=== PATIENT | male | born 1955 | race Two or more races ===

== ENCOUNTER 2018-06-13 19:32 | Inpatient (IN) | payer OTHER ==
[~2018-06-13] VITALS: Ht 162.6 cm; Wt 70.7 kg
[~2018-06-13 19:32] MED LIST: HYDR-3498 PO
[2018-06-13] MEDS ORDERED: SODIUM CHLORIDE 0.9% 1L BAG IV* STA (20:27)
[2018-06-13] MEDS ORDERED: ALBUTEROL 0.5% (NEB) 2.5 MG/0.5 ML AMP INH STA (20:27)
[2018-06-13] MEDS ORDERED: CEFTRIAXONE 1 GM/50 ML (PMX) 50 ML IVPB ONE (20:30)
[2018-06-13] MEDS ORDERED: IBUPROFEN 600 MG TAB PO ONE (20:30)
--- NOTE | 2018-06-13 21:14 | ERD ---
ER Documentation Chief Complaint Chief Complaint C/O HIGH BP AT HOME 140'S, ARAUJO, FEVER AND NOT FEELING WELL X1 MONTH HPI 63-year-old man brought in by daughter for cough, fever, congestion, URI symptoms times 2 days. He was recently told by PMD he has a viral upper respiratory tract infection, he has had no recent antibiotics, no chest pain, no shortness of breath, no vomiting or diarrhea. He has a history of stroke with left-sided deficit and usually walks around the house without difficulty although daughter states for the last 2 days he has been feeling weaker than usual mostly sitting. Patient has had no LOC, no rash, no headache or blurry vision. ROS All systems reviewed and are negative except as per history of present illness. Medications Home Meds Active Scripts Hydrocodone Bit-Acetaminophen* (Beauty*) 5-325 Mg Tab, 1 TAB PO Q6 PRN for PAIN, #10 TAB Prov:CHRIS WILLARD 11/11/15 Reported Medications Metoprolol Tartrate* (Lopressor*) 25 Mg Tab, 12.5 MG PO BID, #60 TAB 06/13/18 Clopidogrel Bisulfate (Clopidogrel) 75 Mg Tablet, 75 MG PO DAILY, #30 TAB 06/13/18 Benazepril Hcl* (Benazepril Hcl*) 5 Mg Tablet, 5 MG PO DAILY, #30 TAB 06/13/18 Atorvastatin* (Atorvastatin*) 80 Mg Tablet, 80 MG PO QHS, #30 TAB 06/13/18 Allergies Allergies: Coded Allergies: No Known Allergy (Unverified , 06/13/18) PMhx/Soc Hypertension, stroke, left-sided deficits, expressive dysphasia History of Surgery: Yes (angioplasty, STENT PLACEMENT, KNEE SX) Hx Neurological Disorder: Yes (STROKE) Hx Cardiac Disorders: Yes (HTN) Hx Alcohol Use: No Hx Substance Use: No Hx Tobacco Use: No Smoking Status: Unknown if ever smoked FmHx Family History: No diabetes Physical Exam Vitals Vital Signs Date Temp Pulse Resp B/P (MAP) Pulse Ox O2 O2 Flow FiO2 Time Delivery Rate 06/13/18 97 23 112/61 98 Mask 8.0 21:45 (78) 06/13/18 Nasal 2 21:25 Cannula 06/13/18 85 20 91 21 20:51 06/13/18 101.7 96 21 127/67 92 19:41 (87) Physical Exam GENERAL: Well-developed, well-nourished, appears dyspneic, febrile HEENT: Moist mucous membranes, pink conjunctiva, no cervical spine tenderness or step-off deformities, no goiter, no jaundice or icterus, extraocular movements intact without pain. No submandibular induration, and no pharyngeal erythema NEURO: A&O x3, patient is able to answer simple questions and follow simple commands, he has expressive dysphasia due to his stroke and left hemiparesis, no facial asymmetry, pupils equal round reactive to light CARDIAC: Regular rate and rhythm, no murmurs rubs or gallops LUNGS: Poor breath sounds bilaterally, scattered wheezes, crackles at the left base ABDOMEN: Soft nontender, no guarding, no rigidity, no rebound, no psoas sign no obturator sign. SKIN: Warm and dry to touch, no abrasions, contusions, or hematomas, no lacerati ons, no ecchymosis, no target lesions, and without ulcers EXTREMITIES: No clubbing cyanosis or edema, calves are bilaterally symmetrical, no Homans sign, no popliteal cord sign. Distal pulses equal and bilateral PSYCH: Normal affect without agitation or irritability Result Diagram: 06/13/18203506/13/182035 Results 24 hrs Laboratory Tests Test 06/13/18 20:33 06/13/18 20:36 06/13/18 21:01 06/13/18 22:43 POC Venous 1.2 mmol/L 1.3 mmol/L Lactate White Blood Count 8.8 10^3/ul Red Blood Count 4.32 10^6/ul Hemoglobin 12.8 g/dl Hematocrit 37.3 % Mean Corpuscular 86.3 fl Volume Mean Corpuscular 29.6 pg Hemoglobin Mean Corpuscular 34.3 g/dl Hemoglobin Concen t Red Cell 13.0 % Distribution Width Platelet Count 371 10^3/UL Mean Platelet 9.2 fl Volume Immature 0.600 % Granulocytes % Neutrophils % 79.4 % Lymphocytes % 9.7 % Monocytes % 9.5 % Eosinophils % 0.5 % Basophils % 0.3 % Nucleated Red 0.0 /100WBC Blood Cells % Immature 0.050 10^3/ul Granulocytes # Neutrophils # 7.0 10^3/ul Lymphocytes # 0.9 10^3/ul Monocytes # 0.8 10^3/ul Eosinophils # 0.0 10^3/ul Basophils # 0.0 10^3/ul Nucleated Red 0.0 10^3/ul Blood Cells # Prothrombin Time 13.5 Sec Prothrombin Time 1.1 Ratio INR International 1.02 Normalized Ratio Activated 36.0 Sec Partial Thrombopl ast Time Sodium Level 137 mmol/L Potassium Level 4.1 mmol/L Chloride Level 100 mmol/L Carbon Dioxide 23 mmol/L Level Anion Gap 14 Blood Urea 20 mg/dl Nitrogen Creatinine 1.41 mg/dl Est Glomerular 51 mL/min Filtrat Rate mL/min Glucose Level 139 mg/dl Calcium Level 9.4 mg/dl Total Bilirubin 0.5 mg/dl Direct Bilirubin 0.00 mg/dl Indirect 0.5 mg/dl Bilirubin Aspartate Amino 28 IU/L Transf (AST/SGOT) Alanine 11 IU/L Aminotransferase (ALT/SGPT) Alkaline 84 IU/L Phosphatase Troponin I 0.014 ng/ml Total Protein 8.1 g/dl Albumin 4.0 g/dl Globulin 4.10 g/dl Albumin/Globulin 0.97 Ratio Lipase 95 U/L Urine Color YELLOW Urine Clarity SLIGHTLY CLOUDY Urine pH 5.0 Urine Specific 1.026 [place] Urine Ketones NEGATIVE mg/dL Urine Nitrite NEGATIVE mg/dL Urine Bilirubin NEGATIVE mg/dL Urine 1+ mg/dL Urobilinogen Urine Leukocyte NEGATIVE Sandra/ul Esterase Urine Microscopic 5 /HPF RBC Urine Microscopic 3 /HPF WBC Urine Mucus MANY /HPF Urine Hemoglobin 2+ mg/dL Urine Glucose NEGATIVE mg/dL Urine Total NEGATIVE mg/dl Protein Current Medications Medications Dose Sig/Cristofer Start Time Status Last (Trade) Ordered Route PRN Stop Time Admin Dose Reason Admin Sodium 2,100 ml BOLUS OVER 2 06/13/18 DC 06/13/18 Chloride HOURS STAT 20:27 20:58 (NS) IV* 06/13/18 20:31 Ibuprofen 600 mg ONCE ONCE 06/13/18 DC 06/13/18 (Motrin) PO 20:30 20:57 06/13/18 20:31 Ceftriaxone 50 ml @ ONCE ONCE 06/13/18 DC 06/13/18 Sodium 100 mls/hr IVPB 20:30 20:57 06/13/18 20:59 Albuterol 10 mg ONCE STAT 06/13/18 DC 06/13/18 (Proventil INH 20:27 20:51 0.5% (Neb)) 06/13/18 20:31 Azithromycin 250 ml @ ONCE ONCE 06/13/18 DC 06/13/18 250 mls/hr IVPB 21:30 21:37 06/13/18 22:29 Procedures/MDM IV line was established patient was placed on clinical research monitor rhythm strip revealed a sinus rhythm at about 80 bpm with upright P and T waves. Patient was febrile. Blood and urine cultures have been ordered results are pending I will follow-up. I do not suspect sepsis. EKG performed, read by me revealed a normal sinus rhythm 84 bpm, normal axis, narrow QRS complex, no concerning ST elevations or depressions noted 1 view chest x-ray performed, read by me revealed a left lower lobe infiltrate, no pneumothorax, no air under the diaphragm I administered 2 L normal saline IV, ibuprofen 600 mg p.o. x1 for fever, albuterol 10 mg via nebulizer for cough and congestion, as well as ceftriaxone 1 g IV. I also administered azithromycin 500 mg IV x1 CBC was unremarkable, electrolytes revealed dehydration, liver function tests normal, troponin negative, urinalysis negative for infection, influenza swabs were negative. Lactic acid level was low and I do not suspect sepsis. Patient admitted to [facility] Diagnosis: Primary Impression: Pneumonia Pneumonia type: due to unspecified organism Laterality: left Lung location: lower lobe of lung Qualified Codes: J18.1 - Lobar pneumonia, unspecified organism Condition: GABRIEL Sosa MD Jun 13, 2018 21:14
[2018-06-13] MEDS ORDERED: AZITHROMYCIN 500MG/NS (PMX) 250 ML IVPB ONE (21:30)
[2018-06-13] MEDS ORDERED: ATOR-2 PO (21:57)
[2018-06-13] MEDS ORDERED: METO-448 PO (21:58)
[2018-06-13] MEDS ORDERED: BENA5TAB33 PO (21:58)
[2018-06-13] MEDS ORDERED: CLOP75TA27 PO (21:58)
--- NOTE | 2018-06-13 23:07 | HP ---
Date/Time of Note Date/Time of Note DATE: 06/13/18 TIME: 23:07 Assessment/Plan VTE Prophylaxis Pharmacological prophylaxis: heparin Lines/Catheters IV Catheter Type (from Nrsg): Peripheral IV Assessment/Plan Assessment/Plan 1. Sepsis, as evidenced by fever and tachycardia: Secondary to pneumonia -IV antibiotic, IV fluid -Follow-up culture results including respiratory culture 2. KAREN versus CKD -will hydrate for now -will decide about renal ultrasound and nephrology consult in a.m. 3. Hypertension: Continue home meds. Adjust as needed 4. History of CVA: Continue antiplatelet and statin 5. Dyslipidemia: Continue statin Result Diagram: 06/13/18203506/13/182035 Results 24hrs Laboratory Tests Test 06/13/18 20:33 06/13/18 20:36 06/13/18 21:01 06/13/18 22:43 POC Venous 1.2 1.3 Lactate White Blood Count 8.8 # Red Blood Count 4.32 L Hemoglobin 12.8 L Hematocrit 37.3 L Mean Corpuscular 86.3 Volume Mean Corpuscular 29.6 Hemoglobin Mean Corpuscular 34.3 Hemoglobin Concen t Red Cell 13.0 Distribution Width Platelet Count 371 Mean Platelet 9.2 # Volume Immature 0.600 H Granulocytes % Neutrophils % 79.4 H Lymphocytes % 9.7 L Monocytes % 9.5 Eosinophils % 0.5 Basophils % 0.3 Nucleated Red 0.0 Blood Cells % Immature 0.050 H Granulocytes # Neutrophils # 7.0 Lymphocytes # 0.9 Monocytes # 0.8 Eosinophils # 0.0 Basophils # 0.0 Nucleated Red 0.0 Blood Cells # Prothrombin Time 13.5 Prothrombin Time 1.1 Ratio INR International 1.02 Normalized Ratio Activated 36.0 H Partial Thrombopl ast Time Sodium Level 137 Potassium Level 4.1 Chloride Level 100 Carbon Dioxide 23 Level Anion Gap 14 H Blood Urea 20 Nitrogen Creatinine 1.41 H Est Glomerular 51 L Filtrat Rate mL/min Glucose Level 139 Calcium Level 9.4 Total Bilirubin 0.5 Direct Bilirubin 0.00 Indirect 0.5 Bilirubin Aspartate Amino 28 Transf (AST/SGOT) Alanine 11 L Aminotransferase (ALT/SGPT) Alkaline 84 Phosphatase Troponin I 0.014 Total Protein 8.1 Albumin 4.0 Globulin 4.10 H Albumin/Globulin 0.97 Ratio Lipase 95 Urine Color YELLOW Urine Clarity SLIGHTLY CLOUDY A Urine pH 5.0 Urine Specific 1.026 [place] Urine Ketones NEGATIVE Urine Nitrite NEGATIVE Urine Bilirubin NEGATIVE Urine 1+ H Urobilinogen Urine Leukocyte NEGATIVE Esterase Urine Microscopic 5 RBC Urine Microscopic 3 WBC Urine Mucus MANY A Urine Hemoglobin 2+ H Urine Glucose NEGATIVE Urine Total NEGATIVE Protein HPI/ROS Admit Date/Time Admit Date/Time Hx of Present Illness This is a 63-year-old male with a history of hypertension, dyslipidemia, CVA, CAD with stent who presented to ER complaining of cough, fever and shortness of breath. Symptoms been going on for the past few days. He is accompanied by his daughter who provided most of the history. She said he was diagnosed with CVA 3 years ago and since then he has been having occasional difficulty with fluid intake. He has also been dependent on his family. Denied chest pain. When presented to ER, he was febrile with temperature of 101.7, heart rate in the 90s. Chest x-ray shows left-sided consolidation. PMH/Family/Social Past Medical History Medical History: other (see hpi) Medications Current Medications Sodium Chloride 1,000 ml @ 100 mls/hr Q10H IV ; Start 06/13/18 at 23:02; Stop 06/14/20 at 23:00; Status UNV IV Flush (NS 3 ml) 3 ml PER PROTOCOL IV ; Start 06/13/18 at 23:30; Status UNV Ondansetron HCl (Zofran Inj) 4 mg Q6H PRN IV NAUSEA/VOMITING; Start 06/13/18 at 23:30; Status UNV Acetaminophen (Tylenol Tab) 650 mg Q6H PRN PO .PAIN 1-3 OR TEMP; Start 06/13/18 at 23:30; Status UNV Albuterol/ Ipratropium (Duoneb) 3 ml Q2H RESP THERAPY PRN HHN SHORTNESS OF BREATH; Start 06/13/18 at 23:30; Status UNV Atorvastatin Calcium (Lipitor) 80 mg QHS PO ; Start 06/14/18 at 21:00; Status UNV Clopidogrel Bisulfate (plaVIX) 75 mg DAILY PO ; Start 06/14/18 at 09:00; Status UNV Acetaminophen/ Hydrocodone Bitart ([place] (5/325)) 1 tab Q6 PRN PO PAIN; Start 06/13/18 at 23:30; Status UNV Levofloxacin/ Dextrose 100 ml @ 100 mls/hr DAILY IVPB ; Start 06/14/18 at 09:00; Status UNV Coded Allergies: No Known Allergy (Unverified , 06/13/18) Past Surgical History Past Surgical Hx: other (see hpi) Family History Significant Family History: no pertinent family hx Social History Alcohol Use: other Smoking Status: Unknown if ever smoked Drug Use: other Exam/Review of Systems Vital Signs Vitals Vital Signs Date Temp Pulse Resp B/P (MAP) Pulse Ox O2 O2 Flow FiO2 Time Delivery Rate 06/13/18 89 20 91/56 (68) 94 Nasal 4.0 22:57 Cannula 06/13/18 21 20:51 06/13/18 101.7 19:41 Exam Exam No pallor carotid bruits JVD adenopathy Regular no murmur gallop no tachypnea Bowel sounds present DAREN MCGREGOR MD Jun 13, 2018 23:07
[2018-06-13] MEDS: SOD CHLORIDE 0.9% 1,000 ML IV SCH (23:26)
[2018-06-13] MEDS ORDERED: ACETAMINOPHEN 325 MG TAB PO PRN (23:30)
[2018-06-13] MEDS ORDERED: ALBUTEROL/IPRATROPIUM (NEB) 3 ML AMP HHN PRN (23:30)
[2018-06-13] MEDS ORDERED: HYDROCODONE/APAP (5/325) TAB PO PRN (23:30)
[2018-06-13] MEDS ORDERED: ONDANSETRON 4 MG INJ IV PRN (23:30)
[2018-06-13] MEDS ORDERED: NACL 0.9% 3 ML SYG IV SCH (23:30)
[2018-06-14] VITALS: BP 96/51; PULSE 77; RESP 18
[2018-06-14 00:17] VITALS: Ht 162.6 cm; Wt 70.7 kg
[2018-06-14 02:39] VITALS: BP 101/56; PULSE 66; RESP 17
[2018-06-14] MEDS: SOD CHLORIDE 0.9% 1,000 ML IV SCH ×3 (06:30→18:10)
[2018-06-14 07:44] VITALS: BP 108/55; PULSE 68; RESP 16
[2018-06-14] MEDS: LEVOFLOXACIN 500MG/D5W (PMX) 100 ML IVPB SCH (08:38)
--- NOTE | 2018-06-14 09:23 | CONS ---
DATE OF ADMISSION: 06/13/2018 DATE OF CONSULTATION: 06/14/2018 TYPE OF CONSULTATION: Nephrology. REASON FOR CONSULTATION: Acute kidney injury. HISTORY OF PRESENT ILLNESS: This is a 63-year-old male with a past medical history of CVA, history o f dyslipidemia, history of hypertension who presents to [facility] with a fever, co ugh. The patient states his symptoms started approximately a few days ago when he was treated for an upper respiratory infection. However, the patient continued to have ongoing fever. As a result, he came to [facility]. Upon arrival, patient had a chest x-ray which showed evidence of left-sided consolidation. The patient was febrile with a temperature of 101.7. In the Emergency Room, the patient was placed on IV antibiotics, IV fluids and admitted to med/surg for evaluation. In terms of patient's renal history, the patient's family stated that he was noted to have renal insu fficiency in the past, but after adjustment of medications his kidney function improved. They are no t aware of any diagnosis of chronic kidney disease. There have been no reports of any rashes, hemopt ysis, hematemesis, or hematochezia. PAST MEDICAL HISTORY: History of hypertension, dyslipidemia, CVA, coronary artery disease. PAST SURGICAL HISTORY: Status post cardiac catheterization. FAMILY HISTORY: No family history of kidney disease. SOCIAL HISTORY: Does not drink, smoke or do drugs. MEDICATIONS: The patient's medications have been reviewed. ALLERGIES: NO KNOWN DRUG ALLERGIES. REVIEW OF SYSTEMS: A 14-point review of systems conducted. Pertinent positives stated in HPI, other calhoun negative. PHYSICAL EXAMINATION: VITAL SIGNS: Blood pressure is 108/55, respirations 16, pulse 68, temperature 98.0. HEENT: Head is normocephalic. NECK: Supple. HEART: Regular rate. LUNGS: Show diminished breath sounds at the base. ABDOMEN: Soft, nontender to palpation. No rebound or guarding. EXTREMITIES: Negative for clubbing, cyanosis, no edema. DERMATOLOGIC: No rashes. MUSCULOSKELETAL: No joint effusion. NEUROLOGIC: No change in exam. LABORATORY DATA: Shows sodium 137, potassium 4.1, BUN 20, creatinine 1.41. White count 8.2, hemoglo bin 10.5, platelet count 304. Urinalysis shows no pyuria, no hematuria. Positive hemoglobin. IMAGING STUDIES: Have been reviewed. ASSESSMENT AND PLAN: This is a 63-year-old male who presents with: 1. Nonoliguric acute kidney injury with unknown baseline creatinine. Etiology of acute kidney injur y may be secondary to hemodynamics, questionable sepsis. The patient's urinalysis was reviewed, no a ctive sediment. Plan at this point is to follow up renal panel after fluid challenge. Would conside r renal ultrasound to evaluate renal parenchyma. Otherwise, continue antibiotics to treat underlying sepsis, pneumonia. Continue supportive care, renally dose all meds, avoid nephrotoxins. 2. Anemia. Continue to monitor hemoglobin and hematocrit levels. 3. Mineral bone disorder, monitor calcium and phosphorus levels. 4. Sepsis secondary to pneumonia. Continue current antibiotic regimen. Follow up cultures. 5. Hypertension. Continue current blood pressure regimen. 6. History of cerebrovascular accident. Continue current medical regimen. 7. History of coronary artery disease. Continue current treatment plan. 8. Dyslipidemia. Continue statin therapy. Thank you, Dr. Mcgregor for this interesting consult. It will be a [facility]. Dictated By: BLUE RAMSEY DO NR/NTS Conf#: [id number] DID#: [id number] CC: DAREN MCGREGOR MD;*EndCC*
[2018-06-14] MEDS: CLOPIDOGREL 75 MG TAB PO SCH (10:43)
--- NOTE | 2018-06-14 13:22 | PN ---
Date/Time of Note Date/Time of Note DATE: 06/14/18 TIME: 13:20 Assessment/Plan VTE Prophylaxis Risk score (from Ns)>0 risk: 3 [place] [facility] [place] [facility] SCD contraindicated: low risk/ambulating Pharmacological prophylaxis: LMWH Lines/Catheters IV [facility]ter Type (from [facility]): Peripheral IV Assessment/Plan Hospital Course Assessment plan 1. Pneumonia aspiration versus community-acquired, stable continue antibiotics 2. Chronic dysphagia? Stable, consult ST 3. Abnormal blood cultures. Contaminated specimen versus sepsis? Stable we do cultures 4. Chronic left hemiparesis/stroke stable continue supportive care. Needs advanced care planning reevaluated 5. Chronic dyslipidemia 6. Chronic hypertension 7. Chronic coronary disease/PCI status 8. Chronic kidney disease? Appreciate nephrology assistance Subjective: Feels better less cough. Family states that they monitor him while he is at home. He did have his flu shot 2 months ago. No travel or ill contacts. Objective: Vital signs stable Physical exam No pallor carotid bruits JVD adenopathy Regular no murmur gallop Clear no tachypnea Bowel sounds present nontender nondistended no rigidity rebound guarding No edema Result Diagram: 06/14/189 06/14/18438 Results 24hrs Laboratory Tests Test 06/13/18 20:33 06/13/18 20:36 06/13/18 21:01 06/13/18 22:43 POC Venous 1.2 1.3 Lactate White Blood Count 8.8 # Red Blood Count 4.32 L Hemoglobin 12.8 L Hematocrit 37.3 L Mean Corpuscular 86.3 Volume Mean Corpuscular 29.6 Hemoglobin Mean Corpuscular 34.3 Hemoglobin Concen t Red Cell 13.0 Distribution Width Platelet Count 371 Mean Platelet 9.2 # Volume Immature 0.600 H Granulocytes % Neutrophils % 79.4 H Lymphocytes % 9.7 L Monocytes % 9.5 Eosinophils % 0.5 Basophils % 0.3 Nucleated Red 0.0 Blood Cells % Immature 0.050 H Granulocytes # Neutrophils # 7.0 Lymphocytes # 0.9 Monocytes # 0.8 Eosinophils # 0.0 Basophils # 0.0 Nucleated Red 0.0 Blood Cells # Prothrombin Time 13.5 Prothrombin Time 1.1 Ratio INR International 1.02 Normalized Ratio Activated 36.0 H Partial Thrombopl ast Time Sodium Level 137 Potassium Level 4.1 Chloride Level 100 Carbon Dioxide 23 Level Anion Gap 14 H Blood Urea 20 Nitrogen Creatinine 1.41 H Est Glomerular 51 L Filtrat Rate mL/min Glucose Level 139 Calcium Level 9.4 Total Bilirubin 0.5 Direct Bilirubin 0.00 Indirect 0.5 Bilirubin Aspartate Amino 28 Transf (AST/SGOT) Alanine 11 L Aminotransferase (ALT/SGPT) Alkaline 84 Phosphatase Troponin I 0.014 Total Protein 8.1 Albumin 4.0 Globulin 4.10 H Albumin/Globulin 0.97 Ratio Lipase 95 Urine Color YELLOW Urine Clarity SLIGHTLY CLOUDY A Urine pH 5.0 Urine Specific 1.026 [place] Urine Ketones NEGATIVE Urine Nitrite NEGATIVE Urine Bilirubin NEGATIVE Urine 1+ H Urobilinogen Urine Leukocyte NEGATIVE Esterase Urine Microscopic 5 RBC Urine Microscopic 3 WBC Urine Mucus MANY A Urine Hemoglobin 2+ H Urine Glucose NEGATIVE Urine Total NEGATIVE Protein Test 06/14/18 00:14 06/14/18 04:39 Lactic Acid Level 1.3 White Blood Count 8.2 Red Blood Count 3.53 L Hemoglobin 10.5 L Hematocrit 31.2 L Mean Corpuscular 88.4 Volume Mean Corpuscular 29.7 Hemoglobin Mean Corpuscular 33.7 Hemoglobin Concen t Red Cell 13.4 Distribution Width Platelet Count 305 Mean Platelet 9.6 Volume Immature 0.500 H Granulocytes % Neutrophils % 68.8 Lymphocytes % 18.1 Monocytes % 11.4 H Eosinophils % 0.7 Basophils % 0.5 Nucleated Red 0.0 Blood Cells % Immature 0.040 H Granulocytes # Neutrophils # 5.6 Lymphocytes # 1.5 Monocytes # 0.9 Eosinophils # 0.1 Basophils # 0.0 Nucleated Red 0.0 Blood Cells # Sodium Level 140 Potassium Level 3.8 Chloride Level 110 # Carbon Dioxide 24 Level Anion Gap 6 # Blood Urea 17 Nitrogen Creatinine 1.15 Est Glomerular > 60 Filtrat Rate mL/min Glucose Level 103 Calcium Level 8.6 Phosphorus Level 4.0 Magnesium Level 2.2 Total Bilirubin 0.3 Direct Bilirubin 0.00 Indirect 0.3 Bilirubin Aspartate Amino 22 Transf (AST/SGOT) Alanine 12 L Aminotransferase (ALT/SGPT) Alkaline 67 Phosphatase Total Protein 6.2 # Albumin 3.0 #L Globulin 3.20 Albumin/Globulin 0.93 Ratio Triglycerides 47 Level Cholesterol Level 70 L LDL Cholesterol, 37 Calculated HDL Cholesterol 24 L Cholesterol/HDL 2.9 Ratio Exam/Review of Systems Exam Vitals Vital Signs Date Temp Pulse Resp B/P (MAP) Pulse Ox O2 O2 Flow FiO2 Time Delivery Rate 06/14/18 Nasal 08:51 Cannula 06/14/18 98.0 68 16 108/55 95 07:44 (72) 06/13/18 4.0 22:57 06/13/18 21 20:51 Intake and Output 06/13/18 06/13/18 06/14/18 1515:00 23:00 07:00 IntakeIntake Total 1120 ml BalanceBalance 1120 ml Results Results 24hrs Laboratory Tests Test 06/13/18 20:33 06/13/18 20:36 06/13/18 21:01 06/13/18 22:43 POC Venous 1.2 1.3 Lactate White Blood Count 8.8 # Red Blood Count 4.32 L Hemoglobin 12.8 L Hematocrit 37.3 L Mean Corpuscular 86.3 Volume Mean Corpuscular 29.6 Hemoglobin Mean Corpuscular 34.3 Hemoglobin Concen t Red Cell 13.0 Distribution Width Platelet Count 371 Mean Platelet 9.2 # Volume Immature 0.600 H Granulocytes % Neutrophils % 79.4 H Lymphocytes % 9.7 L Monocytes % 9.5 Eosinophils % 0.5 Basophils % 0.3 Nucleated Red 0.0 Blood Cells % Immature 0.050 H Granulocytes # Neutrophils # 7.0 Lymphocytes # 0.9 Monocytes # 0.8 Eosinophils # 0.0 Basophils # 0.0 Nucleated Red 0.0 Blood Cells # Prothrombin Time 13.5 Prothrombin Time 1.1 Ratio INR International 1.02 Normalized Ratio Activated 36.0 H Partial Thrombopl ast Time Sodium Level 137 Potassium Level 4.1 Chloride Level 100 Carbon Dioxide 23 Level Anion Gap 14 H Blood Urea 20 Nitrogen Creatinine 1.41 H Est Glomerular 51 L Filtrat Rate mL/min Glucose Level 139 Calcium Level 9.4 Total Bilirubin 0.5 Direct Bilirubin 0.00 Indirect 0.5 Bilirubin Aspartate Amino 28 Transf (AST/SGOT) Alanine 11 L Aminotransferase (ALT/SGPT) Alkaline 84 Phosphatase Troponin I 0.014 Total Protein 8.1 Albumin 4.0 Globulin 4.10 H Albumin/Globulin 0.97 Ratio Lipase 95 Urine Color YELLOW Urine Clarity SLIGHTLY CLOUDY A Urine pH 5.0 Urine Specific 1.026 [place] Urine Ketones NEGATIVE Urine Nitrite NEGATIVE Urine Bilirubin NEGATIVE Urine 1+ H Urobilinogen Urine Leukocyte NEGATIVE Esterase Urine Microscopic 5 RBC Urine Microscopic 3 WBC Urine Mucus MANY A Urine Hemoglobin 2+ H Urine Glucose NEGATIVE Urine Total NEGATIVE Protein Test 06/14/18 00:14 06/14/18 04:39 Lactic Acid Level 1.3 White Blood Count 8.2 Red Blood Count 3.53 L Hemoglobin 10.5 L Hematocrit 31.2 L Mean Corpuscular 88.4 Volume Mean Corpuscular 29.7 Hemoglobin Mean Corpuscular 33.7 Hemoglobin Concen t Red Cell 13.4 Distribution Width Platelet Count 305 Mean Platelet 9.6 Volume Immature 0.500 H Granulocytes % Neutrophils % 68.8 Lymphocytes % 18.1 Monocytes % 11.4 H Eosinophils % 0.7 Basophils % 0.5 Nucleated Red 0.0 Blood Cells % Immature 0.040 H Granulocytes # Neutrophils # 5.6 Lymphocytes # 1.5 Monocytes # 0.9 Eosinophils # 0.1 Basophils # 0.0 Nucleated Red 0.0 Blood Cells # Sodium Level 140 Potassium Level 3.8 Chloride Level 110 # Carbon Dioxide 24 Level Anion Gap 6 # Blood Urea 17 Nitrogen Creatinine 1.15 Est Glomerular > 60 Filtrat Rate mL/min Glucose Level 103 Calcium Level 8.6 Phosphorus Level 4.0 Magnesium Level 2.2 Total Bilirubin 0.3 Direct Bilirubin 0.00 Indirect 0.3 Bilirubin Aspartate Amino 22 Transf (AST/SGOT) Alanine 12 L Aminotransferase (ALT/SGPT) Alkaline 67 Phosphatase Total Protein 6.2 # Albumin 3.0 #L Globulin 3.20 Albumin/Globulin 0.93 Ratio Triglycerides 47 Level Cholesterol Level 70 L LDL Cholesterol, 37 Calculated HDL Cholesterol 24 L Cholesterol/HDL 2.9 Ratio Medications Medication Current Medications Sodium Chloride 1,000 ml @ 100 mls/hr Q10H IV Last administered on 06/14/18at 10:44; Admin Dose 100 MLS/HR; Start 06/13/18 at 23:02; Stop 06/14/20 at 23:00 IV Flush (NS 3 ml) 3 ml PER PROTOCOL IV ; Start 06/13/18 at 23:30 Ondansetron HCl (Zofran Inj) 4 mg Q6H PRN IV NAUSEA/VOMITING; Start 06/13/18 at 23:30 Acetaminophen (Tylenol Tab) 650 mg Q6H PRN PO .PAIN 1-3 OR TEMP; Start 06/13/18 at 23:30 Albuterol/ Ipratropium (Duoneb) 3 ml Q2H RESP THERAPY PRN HHN SHORTNESS OF BREATH; Start 06/13/18 at 23:30 Atorvastatin Calcium (Lipitor) 80 mg QHS PO ; Start 06/14/18 at 21:00 Clopidogrel Bisulfate (plaVIX) 75 mg DAILY PO Last administered on 06/14/18at 10:43; Admin Dose 75 MG; Start 06/14/18 at 09:00 Acetaminophen/ Hydrocodone Bitart ([place] (5/325)) 1 tab Q6H PRN PO PAIN; Start 06/13/18 at 23:30 Levofloxacin/ Dextrose 100 ml @ 100 mls/hr DAILY IVPB Last administered on 06/14/18at 08:38; Admin Dose 100 MLS/HR; Start 06/14/18 at 09:00 SHAMEKA ANDERSON MD Jun 14, 2018 13:22
[2018-06-14] MEDS ORDERED: GUAIFENESIN/DM 5ML CUP PO PRN (13:30)
[2018-06-14] MEDS ORDERED: CEFTRIAXONE 2 GM INJ IM ONE (13:30)
[2018-06-14 13:51] VITALS: BP 116/60; PULSE 79; RESP 16
[2018-06-14] MEDS: CEFTRIAXONE 2 GM/50 ML (PMX) 50 ML IVPB SCH (15:18)
[2018-06-14 20:00] VITALS: BP 134/74; PULSE 90; RESP 18
[2018-06-14] MEDS ORDERED: ATORVASTATIN 80 MG TAB PO SCH (21:00)
[2018-06-15 02:00] VITALS: BP 124/64; PULSE 100; RESP 18
[2018-06-15 07:34] VITALS: BP 118/61; PULSE 93; RESP 18
[2018-06-15] MEDS: LEVOFLOXACIN 500MG/D5W (PMX) 100 ML IVPB SCH (08:13)
[2018-06-15] MEDS: CLOPIDOGREL 75 MG TAB PO SCH (08:13)
[2018-06-15] MEDS ORDERED: ENOXAPARIN 40 MG/0.4 ML SYG SC SCH (09:00)
[2018-06-15] MEDS ORDERED: FAMOTIDINE 20 MG TAB PO SCH (09:00)
--- NOTE | 2018-06-15 14:44 | PDOCDIS ---
Discharge Instructions CONDITION [id number] Patient Condition: [id number] Stable HOME CARE INSTRUCTIONS: [id number] Diet Instructions: Srogu5t Low Fat /Cholesterol ACTIVITY: [id number] Activity Restrictions: [id number] Slowly Increase Activity Do not Drive FOLLOW UP/APPOINTMENTS Follow-up Plan appt primary 1wk SHAMEKA ANDERSON MD Jun 15, 2018 14:44
[2018-06-15] MEDS ORDERED: GUAI120S26 PO (14:45)
[2018-06-15] MEDS ORDERED: LEVO750T8 PO (14:45)
[2018-06-15] MEDS ORDERED: ACET325T33 PO (14:45)
[2018-06-15] MEDS: CEFTRIAXONE 2 GM/50 ML (PMX) 50 ML IVPB SCH (15:23)
--- NOTE | 2018-06-15 16:40 | DS ---
Date/Time of Note Date/Time of Note DATE: 06/15/18 TIME: 16:35 Discharge Summary Admission/Discharge Info Admit Date/Time Jun 13, 2018 at 21:16 Discharge Date/Time Jun 15, 2018 at 16:20 Patient Condition: Stable Procedures Chest x-ray IMPRESSION: Left lower lobe consolidation cannot exclude pneumonia given the provided history. Consider follow-up evaluation after medical therapy. Hx of Present Illness 63-year-old gentleman admitted with dyspnea cough subjective fevers. Possible aspiration. Hospital Course Hospitalist coverage/Hospital course Admitted and treated for pneumonia. Symptoms improved fever improved. Stable and fit for discharge. On empiric Levaquin. Blood cultures initially concerning for sepsis. PCP may follow-up on final blood cultures at [phone] and adjust antibiotics if needed. Recommend repeat chest x-ray in 2 weeks. Aspiration risk discussed with patient and daughter. They are continuously watching the patient's habits at home. No witnessed aspiration. Patient I believe has a video swallow pending at [facility] soon. Assessment plan 1. Pneumonia aspiration vs community-acquired, stable cont antibiotics 2. Chronic dysphagia? Stable, continue outpatient speech therapy 3. Abnormal blood cultures? Contaminated specimen vs sepsis? Stable repeat cultures appears negative. 4. Chr left hemiparesis/stroke stable cont supportive care. Needs advanced care planning reevaluated 5. Chr dyslipidemia 6. Chronic hypertension 7. Chr cad/ PCI status 8. Chronic kidney disease? Appreciate nephrology assistance creatinine will at present. 9. Apathy vs transient depression. Probably better in a home environment. Subjective: 3/1 feels better less cough. Family states that they monitor him while he is at home. He did have his flu shot 2 months ago. No travel or ill contacts. 3/2: No events feels better. Apathy probably better at home Objective: Vital signs stable Physical exam No pallor Regular no murmur gallop Clear no tachypnea Bowel sounds present nontender nondistended no rigidity rebound guarding No edema Home Meds Active Scripts Levofloxacin* (Levofloxacin*) 750 Mg Tablet, 750 MG PO DAILY for 4 Days, #4 TAB Prov:SHAMEKA ANDERSON MD 06/15/18 Pusghaoymfy-U-Gvgxlnefux Hb* (Guaifenesin* DM Syrup) 120 Ml Syrup, 10 ML PO Q4H PRN for COUGH for 10 Days Prov:SHAMEKA ANDERSON MD 06/15/18 Acetaminophen* (Tylenol*) 325 Mg Tablet, 650 MG PO Q6H PRN for .PAIN 1-3 OR TEMP for 1 Day, TAB Prov:SHAMEKA ANDERSON MD 06/15/18 Reported Medications Metoprolol Tartrate* (Lopressor*) 25 Mg Tab, 12.5 MG PO BID, #60 TAB 06/13/18 Clopidogrel Bisulfate (Clopidogrel) 75 Mg Tablet, 75 MG PO DAILY, #30 TAB 06/13/18 Benazepril Hcl* (Benazepril Hcl*) 5 Mg Tablet, 5 MG PO DAILY, #30 TAB 06/13/18 Atorvastatin* (Atorvastatin*) 80 Mg Tablet, 80 MG PO QHS, #30 TAB 06/13/18 Discontinued Scripts Hydrocodone Bit-Acetaminophen* (Pollard*) 5-325 Mg Tab, 1 TAB PO Q6 PRN for PAIN, #10 TAB Prov:CHRIS WILLARD 11/11/15 Follow-up Plan appt primary 1wk Primary Care Provider [facility] Time spent on discharge: > 30 minutes Pending Labs Laboratory Tests Test 06/15/18 05:52 White Blood Count 8.6 10^3/ul (4.8-10.8) Red Blood Count 3.88 10^6/ul (4.70-6.10) Hemoglobin 11.5 g/dl (14.0-18.0) Hematocrit 34.4 % (42.0-52.0) Mean Corpuscular Volume 88.7 fl (82.0-101.0) Mean Corpuscular Hemoglobin 29.6 pg (29.0-33.0) Mean Corpuscular Hemoglobin Concent 33.4 g/dl (32.0-37.0) Red Cell Distribution Width 13.2 % (11.5-14.5) Platelet Count 346 10^3/UL (140-415) Mean Platelet Volume 9.4 fl (7.4-10.4) Immature Granulocytes % 0.600 % (0.001-0.429) Neutrophils % 77.4 % (39.0-77.0) Lymphocytes % 12.8 % (15.0-51.0) Monocytes % 8.0 % (0.0-11.0) Eosinophils % 0.6 % (0.0-7.0) Basophils % 0.6 % (0.0-2.0) Nucleated Red Blood Cells % 0.0 /100WBC (0.0-0.0) Immature Granulocytes # 0.050 10^3/ul (0.0-0.031) Neutrophils # 6.6 10^3/ul (1.6-7.5) Lymphocytes # 1.1 10^3/ul (0.8-2.9) Monocytes # 0.7 10^3/ul (0.3-0.9) Eosinophils # 0.1 10^3/ul (0.0-0.5) Basophils # 0.1 10^3/ul (0.0-0.1) Nucleated Red Blood Cells # 0.0 10^3/ul (0.0-0.0) Sodium Level 140 mmol/L (135-144) Potassium Level 4.0 mmol/L (3.5-5.1) Chloride Level 106 mmol/L (97-110) Carbon Dioxide Level 24 mmol/L (21-31) Anion Gap 10 (5-13) Blood Urea Nitrogen 9 mg/dl (7-20) Creatinine 1.08 mg/dl (0.61-1.24) Est Glomerular Filtrat Rate mL/min > 60 mL/min (>60) Glucose Level 83 mg/dl (70-220) Hemoglobin A1c 5.3 % (0-5.9) Calcium Level 8.5 mg/dl (8.4-10.2) Phosphorus Level 3.0 mg/dl (2.5-4.9) Magnesium Level 2.0 mg/dl (1.7-2.5) Total Bilirubin 0.4 mg/dl (0.2-1.3) Direct Bilirubin 0.00 mg/dl (0.00-0.20) Indirect Bilirubin 0.4 mg/dl (0-1.1) Aspartate Amino Transf (AST/SGOT) 22 IU/L (15-46) Alanine Aminotransferase (ALT/SGPT) 21 IU/L (13-69) Alkaline Phosphatase 76 IU/L (42-121) Total Protein 6.6 g/dl (6.1-8.1) Albumin 3.2 g/dl (3.3-4.9) Globulin 3.40 g/dl (1.3-3.2) Albumin/Globulin Ratio 0.94 Thyroid Stimulating Hormone (TSH) 2.210 MIU/L (0.465-4.680) SHAMEKA ANDERSON MD Jun 15, 2018 16:40
== END 2018-06-15 16:20 | disposition home or self-care (01) | DRG 871 ==
LOC: E/R 19:32 → 2NE 21:16
PROVIDERS: ADMIT Internal Medicine; ATTEND Internal Medicine
DX: A41.9 Sepsis, unspecified organism (principal); J69.0 Pneumonitis due to inhalation of food and vomit; N17.9 Acute kidney failure, unspecified; I69.354 Hemiplegia and hemiparesis following cerebral infarction affecting left non-dominant side; I10 Essential (primary) hypertension; I12.9 Hypertensive chronic kidney disease with stage 1 through stage 4 chronic kidney disease, or unspecified chronic kidney disease; N18.9 Chronic kidney disease, unspecified; E78.5 Hyperlipidemia, unspecified; D64.9 Anemia, unspecified
CPT/HCPCS: 36415; 71045; 80053; 80061; 81001; 83036; 83605; 83690; 83735; 84100; 84443; 84484; 85025; 85610; 85730; 87040; 87086; 87400; 93005; 94644; 96374; J0456; J0696; J1650; J1956; J7030

== ENCOUNTER 2018-07-12 11:06 | Emergency (ER) | payer OTHER ==
[~2018-07-12] VITALS: Wt 67.7 kg
[~2018-07-12 11:06] MED LIST changes: +ACET325T33 PO; +ATOR-2 PO; +BENA5TAB33 PO; +CLOP75TA27 PO; +GUAI120S26 PO; -HYDR-3498 PO; +LEVO750T8 PO; +METO-448 PO
[2018-07-12 11:36] VITALS: BP 121/70; PULSE 57; RESP 20; Wt 67.7 kg
[2018-07-12] MEDS ORDERED: ACET-141 PO (16:41)
--- NOTE | 2018-07-12 16:47 | ERD ---
ER Documentation Chief Complaint Chief Complaint R. THIGH PAIN X3 DAYS, NO TRAUMA HPI [age]-year-old male past medical history of CVA currently on Plavix, history of RI with 3 cardiac stents presents for right times 2 days. The leg pain is associated with some swelling. Denies any history of trauma. He does have a history of right knee replacement about 30 years ago. Patient daughter stated that the patient had some back pain about a week ago which has since resolved and subsequently developed the right thigh pain. Denies chest pain or shortness of breath. Denies abdominal pain, nausea, vomiting. ROS All systems reviewed and are negative except as per history of present illness. Medications Home Meds Active Scripts Acetaminophen* (Acetaminophen*) 500 MG Extra Strength Tablet, 500 MG PO Q4H PRN for PAIN AND OR ELEVATED TEMP, #30 TAB Prov:CAMILLE VENCES DO 07/12/18 Levofloxacin* (Levofloxacin*) 750 Mg Tablet, 750 MG PO DAILY for 4 Days, #4 TAB Prov:SHAMEKA ANDERSON MD 06/15/18 Wluvnovvarh-D-Osecbtygrw Hb* (Guaifenesin* DM Syrup) 120 Ml Syrup, 10 ML PO Q4H PRN for COUGH for 10 Days Prov:SHAMEKA ANDERSON MD 06/15/18 Acetaminophen* (Tylenol*) 325 Mg Tablet, 650 MG PO Q6H PRN for .PAIN 1-3 OR TEMP for 1 Day, TAB Prov:SHAMEKA ANDERSON MD 06/15/18 Reported Medications Metoprolol Tartrate* (Lopressor*) 25 Mg Tab, 12.5 MG PO BID, #60 TAB 06/13/18 Clopidogrel Bisulfate (Clopidogrel) 75 Mg Tablet, 75 MG PO DAILY, #30 TAB 06/13/18 Benazepril Hcl* (Benazepril Hcl*) 5 Mg Tablet, 5 MG PO DAILY, #30 TAB 06/13/18 Atorvastatin* (Atorvastatin*) 80 Mg Tablet, 80 MG PO QHS, #30 TAB 06/13/18 Allergies Allergies: Coded Allergies: No Known Allergy (Unverified , 06/13/18) PMhx/Soc History of Surgery: Yes (angioplasty,stent placement, knee surgery) Anesthesia Reaction: No Hx Neurological Disorder: No Hx Respiratory Disorders: No Hx Cardiac Disorders: Yes (htn, hypercholesterol) Hx Psychiatric Problems: No Hx Miscellaneous Medical Probl: Yes (stroke) Hx Alcohol Use: No Hx Substance Use: No Hx Tobacco Use: No Smoking Status: Never smoker Physical Exam Vitals Vital Signs Date Temp Pulse Resp B/P (MAP) Pulse Ox O2 O2 Flow FiO2 Time Delivery Rate 07/12/18 96.8 57 20 121/70 95 11:36 (87) Physical Exam Const: No acute distress Resp: Clear to auscultation bilaterally Cardio: Regular rate and rhythm, no murmurs Skin: No petechiae or rashes Back: No midline or flank tenderness Neur: Awake and alert Psych: Normal Mood and Affect Lower Extremity -right: Skin: No laceration Compartments: Soft Motor: Full active range of motion hip/knee/ankle/foot Sensation: Intact to light touch FDWS/MF/LF/P surfaces. Bones: Nontender pelvis/knee/proximal tibia/ malleoli/foot Joints: No effusion or laxity Pulses/Perfusion: 2+ DP, Capillary refill < 2 seconds There was tenderness palpation over the quadriceps area with mild swelling noted. Procedures/MDM Medical Decision Making: Differential diagnosis includes but not limited to muscle strain, ligamentous sprain, DVT Patient appeared well on physical exam. There is mild tenderness palpation over the hamstring muscle area with mild swelling noted Patient was neurovascularly intact ED course: Right lower extremity Doppler negative for DVT Patient possibly has muscle strain Prescription(s): Patient given prescription for supportive medication(s). Patient advised to follow up with PCP in 1-2 days. Patient advised to return to ED for new or worsening symptoms. Patient stable on discharge from the ED. Disclaimer: Inadvertent spelling and grammatical errors are likely due to EHR /dictation software use and do not reflect on the overall quality of patient care. Also, please note that the electronic time recorded on this note does not necessarily reflect the actual time of the patient encounter. Departure Diagnosis: Primary Impression: Pain of right leg Condition: Fair Patient Instructions: Possible Causes of Low Back or Leg Pain Referrals: [facility] (PCP) Additional Instructions: Call your primary care doctor TOMORROW for an appointment during the next 1-2 days.See the doctor sooner or return here if your condition worsens before your appointment time. CAMILLE VENCES DO Jul 12, 2018 16:47
== END 2018-07-12 17:15 | disposition home or self-care (01) ==
LOC: FTE 11:06
DX: M79.604 Pain in right leg (principal); I10 Essential (primary) hypertension; Z79.01 Long term (current) use of anticoagulants; Z86.73 Personal history of transient ischemic attack (TIA), and cerebral infarction without residual deficits; Z96.651 Presence of right artificial knee joint; Z98.61 Coronary angioplasty status
CPT/HCPCS: 93971; Z7502

== ENCOUNTER 2018-07-20 12:58 | Emergency (ER) | payer OTHER ==
[~2018-07-20] VITALS: Ht 177.8 cm; Wt 72.7 kg
[~2018-07-20 12:58] MED LIST changes: +ACET-141 PO
[2018-07-20 13:04] VITALS: BP 166/90; PULSE 60; RESP 20; Ht 177.8 cm; Wt 72.7 kg
--- NOTE | 2018-07-20 14:38 | ERD ---
ER Documentation Chief Complaint Chief Complaint Pt. KYRIE RA due to right "chronic" knee pain, worse today HPI 63-year-old male, presents the emergency department, brought in by ambulance c omplaining of right chronic knee pain that got worse today. No history of acute trauma. The patient denies fevers, no chills, no local erythema warmth or deformity. ROS All systems reviewed and are negative except as per history of present illness. Medications Home Meds Active Scripts Front Wheel Walker* (Front Wheel Walker*) 1 Each Dme, EACH MC DIRECTED, #1 0 Refills Prov:MAYRA ABRAHAM MD 07/20/18 Hydrocodone/Acetaminophen ([place] 5-325 Tablet) 1 Each Tablet, 1 TAB PO BID PRN for PAIN, #10 TAB Prov:MAYRA ABRAHAM MD 07/20/18 Prednisone* (Prednisone*) 20 Mg Tab, 40 MG PO DAILY for 4 Days, TAB Prov:MAYRA ABRAHAM MD 07/20/18 Acetaminophen* (Acetaminophen*) 500 MG Extra Strength Tablet, 500 MG PO Q4H PRN for PAIN AND OR ELEVATED TEMP, #30 TAB Prov:CAMILLE VENCES DO 07/12/18 Levofloxacin* (Levofloxacin*) 750 Mg Tablet, 750 MG PO DAILY for 4 Days, #4 TAB Prov:SHAMEKA ANDERSON MD 06/15/18 Rvboogpczpg-R-Punhspuvil Hb* (Guaifenesin* DM Syrup) 120 Ml Syrup, 10 ML PO Q4H PRN for COUGH for 10 Days Prov:SHAMEKA ANDERSON MD 06/15/18 Acetaminophen* (Tylenol*) 325 Mg Tablet, 650 MG PO Q6H PRN for .PAIN 1-3 OR TEMP for 1 Day, TAB Prov:SHAMEKA ANDERSON MD 06/15/18 Reported Medications Metoprolol Tartrate* (Lopressor*) 25 Mg Tab, 12.5 MG PO BID, #60 TAB 06/13/18 Clopidogrel Bisulfate (Clopidogrel) 75 Mg Tablet, 75 MG PO DAILY, #30 TAB 06/13/18 Benazepril Hcl* (Benazepril Hcl*) 5 Mg Tablet, 5 MG PO DAILY, #30 TAB 06/13/18 Atorvastatin* (Atorvastatin*) 80 Mg Tablet, 80 MG PO QHS, #30 TAB 06/13/18 Allergies Allergies: Coded Allergies: No Known Allergy (Unverified , 06/13/18) PMhx/Soc History of Surgery: Yes (angioplasty,stent placement, knee surgery) Anesthesia Reaction: No Hx Neurological Disorder: No Hx Respiratory Disorders: No Hx Cardiac Disorders: Yes (htn, hypercholesterol) Hx Psychiatric Problems: No Hx Miscellaneous Medical Probl: Yes (stroke) Hx Alcohol Use: No Hx Substance Use: No Hx Tobacco Use: No Physical Exam Vitals Vital Signs Date Temp Pulse Resp B/P (MAP) Pulse Ox O2 O2 Flow FiO2 Time Delivery Rate 07/20/18 98.1 60 20 166/90 98 13:04 (115) Physical Exam Patient alert, oriented, vital signs stable. HEAD: Normocephalic, atraumatic. EYES: PERRLA, EOMI, Sclera and conjunctiva appear normal. NOSE: Clear and patent nostrils. EARS: Canals clear, tympanic membranes WNL. MOUTH: Normal lips and tongues, no oral lesions. THROAT: Normal oropharynx. NECK: Supple, No lymphadenopathy. Full ROM without pain or tenderness. HEART: RRR, no rubs, murmurs, clicks or gallops. LUNGS: Clear to auscultation. ABDOMEN: Soft, non-tender without masses or hepatosplenomegaly. EXTREMITIES: Right knee with peripatellar effusion, full passive range of motion, no warmth or erythema. Distal neurovascular exam intact BACK: Full ROM, no deformity, normal back exam NEURO: Cranial nerves grossly intact, no motor or sensory deficit SKIN: No rashes, no petechia. Results 24 hrs Current Medications Medications Dose Sig/Cristofer Start Time Status Last (Trade) Ordered Route PRN Stop Time Admin Dose Reason Admin 125 mg ONCE ONCE 07/20/18 DC 07/20/18 Methylprednis IM 15:00 07/20/18 15:07 olone Sodium 15:01 Succinate (Solu-Medrol) Procedures/MDM Acute on chronic atraumatic right knee pain: no red flags. Differential diagnosis include but not limited to: Osteoarthritis, gout, skin cellulitis, knee contusion, meniscus injury, tendon/ligament injury, arthritis; low suspicion for fracture, dislocation, septic arthritis. Neurovascular exam grossly intact. no clinical findings suggestive of acute infectious process, no acute deformity, no rashes. Physical examination and clinical presentation consistent most likely with acute on chronic right knee pain with knee effusion. During the ED course the patient received treatment with Solu-Medrol IM, at this time I do not consider that a knee aspiration is indicated because effusion is very mild and the patient is on anticoagulation. Results and clinical impression discussed with the patient who agrees with management. The patient is stable to be treated outpatient and will be discharged home with recommendations for ice, rest and partial immobilization. The patient was instructed to follow up with the primary care provider in the next 48h. If symptoms persist, worsen or new symptoms develop, then patient should return to the ED immediately. Instructions explained and given to patient with acknowledgment and demonstrated understanding. Disclaimer: Inadvertent spelling and grammatical errors are likely due to EHR/dictation software use and do not reflect on the overall quality of patient care. Also, please note that the electronic time recorded on this note does not necessarily reflect the actual time of the patient encounter. Departure Diagnosis: Primary Impression: Osteoarthritis of right knee Additional Impression: Knee effusion, right Condition: Stable Additional Instructions: Thank you very much for allowing us to participate in your care. Your health and safety is our top priority at [facility]. Call your primary care doctor TOMORROW for an appointment during the next 2-4 days and bring all the information and medications prescribed. Have prescriptions filled and follow precisely the directions on the label. If the symptoms get worse and your provider is unavailable, return to the Emergency Department immediately. MAYRA ABRAHAM MD Jul 20, 2018 14:38
[2018-07-20] MEDS ORDERED: PRED20TA PO (14:58)
[2018-07-20] MEDS ORDERED: HYDR-4011 PO (14:58)
[2018-07-20] MEDS ORDERED: WALK1EAC23 MC (14:59)
[2018-07-20] MEDS ORDERED: METHYLPREDNISOLONE 125 MG INJ IM ONE (15:00)
== END 2018-07-20 15:12 | disposition home or self-care (01) ==
LOC: FTE 12:58
DX: M17.9 Osteoarthritis of knee, unspecified (principal); I10 Essential (primary) hypertension; M25.461 Effusion, right knee; Z79.01 Long term (current) use of anticoagulants; Z98.61 Coronary angioplasty status
CPT/HCPCS: 96372; J2930; Z7502

== ENCOUNTER 2018-07-27 16:33 | Emergency (ER) | payer OTHER ==
[~2018-07-27] VITALS: Ht 170.2 cm; Wt 66.1 kg
[~2018-07-27 16:33] MED LIST changes: +HYDR-4011 PO; +PRED20TA PO; +WALK1EAC23 MC
[2018-07-27 16:35] VITALS: Ht 170.2 cm; Wt 66.1 kg
--- NOTE | 2018-07-27 19:06 | ERD ---
ER Documentation Chief Complaint Chief Complaint RT KNEE PAIN PER FAMILY HAS "ACCUMILATION OF FLUID" HPI 63-year-old male with past medical history of CVA, CAD X for stents on aspirin and Plavix who presents with persistent right knee pain. Patient states he presented to this emergency room about a week ago prescribed Ralston and steroids. Patient's states that steroids and Ralston helps somewhat with symptoms. Returns with daughter as he is concerned that his pain may return given he has completed a course of steroids. He is able to ambulate with a bit of discomfort but otherwise is neurovascularly intact. Daughter requesting additional pain medications and additional steroid medications. Patient saw her PMD recently and was told by PMD to proceed to ER to have an x-ray of right knee done. He otherwise without complaint. Does not use assistive device and performs all ADLs without much assistance. ROS All systems reviewed and are negative except as per history of present illness. Medications Home Meds Active Scripts Tramadol HCl (Tramadol HCl) 50 Mg Tablet, 50 MG PO Q6, #14 TAB Prov:ANTONIO GONZALEZ PA-C 07/27/18 Acetaminophen* (Tylophen*) 500 Mg Capsule, 1 CAP PO Q6H PRN for PAIN AND OR ELEVATED TEMP, #20 CAP Prov:ANTONIO GONZALEZ PA-C 07/27/18 Prednisone* (Prednisone*) 20 Mg Tab, 20 MG PO DAILY for 3 Days, TAB Prov:ANTONIO GONZALEZ PA-C 07/27/18 Front Wheel Walker* (Front Wheel Walker*) 1 Each Dme, EACH MC DIRECTED, #1 0 Refills Prov:MAYRA ABRAHAM MD 07/20/18 Hydrocodone/Acetaminophen ([place] 5-325 Tablet) 1 Each Tablet, 1 TAB PO BID PRN for PAIN, #10 TAB Prov:MAYRA ABRAHAM MD 07/20/18 Prednisone* (Prednisone*) 20 Mg Tab, 40 MG PO DAILY for 4 Days, TAB Prov:MAYRA ABRAHAM MD 07/20/18 Acetaminophen* (Acetaminophen*) 500 MG Extra Strength Tablet, 500 MG PO Q4H PRN for PAIN AND OR ELEVATED TEMP, #30 TAB Prov:CAMILLE VENCES DO 07/12/18 Levofloxacin* (Levofloxacin*) 750 Mg Tablet, 750 MG PO DAILY for 4 Days, #4 TAB Prov:SHAMEKA ANDERSON MD 06/15/18 Vghxlaccgyx-G-Xtaxcfeaui Hb* (Guaifenesin* DM Syrup) 120 Ml Syrup, 10 ML PO Q4H PRN for COUGH for 10 Days Prov:SHAMEKA ANDERSON MD 06/15/18 Acetaminophen* (Tylenol*) 325 Mg Tablet, 650 MG PO Q6H PRN for .PAIN 1-3 OR TEMP for 1 Day, TAB Prov:SHAMEKA ANDERSON MD 06/15/18 Reported Medications Metoprolol Tartrate* (Lopressor*) 25 Mg Tab, 12.5 MG PO BID, #60 TAB 06/13/18 Clopidogrel Bisulfate (Clopidogrel) 75 Mg Tablet, 75 MG PO DAILY, #30 TAB 06/13/18 Benazepril Hcl* (Benazepril Hcl*) 5 Mg Tablet, 5 MG PO DAILY, #30 TAB 06/13/18 Atorvastatin* (Atorvastatin*) 80 Mg Tablet, 80 MG PO QHS, #30 TAB 06/13/18 Allergies Allergies: Coded Allergies: No Known Allergy (Unverified , 06/13/18) PMhx/Soc History of Surgery: Yes (angioplasty,stent placement, knee surgery) Anesthesia Reaction: No Hx Neurological Disorder: No Hx Respiratory Disorders: No Hx Cardiac Disorders: Yes (htn, hypercholesterol) Hx Psychiatric Problems: No Hx Miscellaneous Medical Probl: Yes (stroke) Hx Alcohol Use: No Hx Substance Use: No Hx Tobacco Use: No Smoking Status: Never smoker FmHx Family History: diabetes, coronary disease Physical Exam Vitals Vital Signs Date Temp Pulse Resp B/P (MAP) Pulse Ox O2 O2 Flow FiO2 Time Delivery Rate 07/27/18 98.4 66 18 126/71 99 16:35 (89) Physical Exam I have reviewed the triage vital signs. Const: Well nourished, well developed, appears stated age Eyes: PERRL, no conjunctival injection HENT: NCAT, Neck supple without meningismus CV: RRR, Warm, well-perfused extremities RESP: CTAB, Unlabored respiratory effort GI: soft, non-tender, non-distended, no masses MSK: No gross deformities appreciated R knee no gross deformities, full ROM, 5/5 strength distally, SILT throughout, no prominent swelling Skin: Warm, dry. No rashes Neuro: grossly non focal Psych: Appropriate mood and affect. Results 24 hrs Current Medications Medications Dose Sig/Cristofer Start Time Status Last (Trade) Ordered Route PRN Stop Time Admin Dose Reason Admin 10 mg ONCE ONCE 07/27/18 DC 07/27/18 Dexamethasone IM 19:30 19:10 (Decadron) 07/27/18 19:31 Procedures/MDM 63-year-old male who returns to ED for complaint of persistent right knee pain and swelling. X-ray with severe osteoarthritis previous history of ACL repair. His symptoms likely represent flare of osteoarthritis. He is on aspirin and Plavix therefore NSAIDs are not a good option for treating his pain. He has no other concerning symptoms. Is able to ambulate without issue beyond 4 steps. I have instructed patient to follow-up with his PMD for referral to appropriate specialist for continued management of his osteoarthritic pain. Plan: X-ray of right knee with osteo-arthritic changes, no acute findings, no prominent effusion Will discharge reduced dose and reduce course steroids for an additional 3 days Tramadol and Tylenol for pain control DISPOSITION PLAN: We discussed follow up with the patient's primary care doctor within 24 to 48 hours. Patient counseled regarding my diagnostic impression and care plan. Prior to discharge all questions answered. Pt agrees with treatment plan and understands strict return precautions. Precautionary instructions provided including instructions to return to the ER if not improving or for any worsening or changing symptoms or concerns. Departure Diagnosis: Primary Impression: Osteoarthritis Condition: Stable ANTONIO GONZALEZ PA-C Jul 27, 2018 19:06
[2018-07-27] MEDS ORDERED: ACET500C5 PO (19:11)
[2018-07-27] MEDS ORDERED: PRED20TA PO (19:11)
[2018-07-27] MEDS ORDERED: DEXAMETHASONE 10 MG/ML 1 ML INJ IM ONE (19:30)
[2018-07-27] MEDS ORDERED: TRAM50TA2 PO (20:10)
[2018-07-27 20:26] VITALS: BP 124/68; PULSE 64; RESP 16
== END 2018-07-27 20:26 | disposition home or self-care (01) ==
LOC: FTE 16:33
DX: M17.9 Osteoarthritis of knee, unspecified (principal); I10 Essential (primary) hypertension; I25.10 Atherosclerotic heart disease of native coronary artery without angina pectoris; Z86.73 Personal history of transient ischemic attack (TIA), and cerebral infarction without residual deficits; Z98.61 Coronary angioplasty status
CPT/HCPCS: 73562; 96372; J1100; Z7502